=== PATIENT | female | born 1950 | race Caucasian/White ===

== ENCOUNTER → 2023-10-12 14:21 | Outpatient (REF) | payer MEDICARE, OTHER, SELFPAY ==
[2023-10-12 15:34] LABS: ALT (SGPT) 25 U/L (0-35); AST (SGOT) 36 U/L (14-36); Albumin 4.6 g/dl (3.5-5.0); Alkaline Phosphatase 75 U/L (38-126); Blood Urea Nitrogen 11 mg/dl (7-17); Carbon Dioxide 23 mmol/L (22-30); Chloride 99 mmol/L (98-107); Glucose 108 mg/dl (70-99); HDL Cholesterol 75 mg/dl; LDL Cholesterol, Calculated 63 mg/dl; Potassium 4.2 mmol/L (3.5-5.1); Sodium 132 mmol/L (135-145); Total Bilirubin 0.8 mg/dl (0.2-1.3); Total Cholesterol 155 mg/dl (50-199); Total Protein 7.5 g/dl (6.3-8.2); Triglyceride 85 mg/dl (10-149); Very Low Density Lipoprotein 17 mg/dl (0-30); eGFR > 60.00
== END ==
LOC: REG 14:21
PROVIDERS: ATTENDING PHYSICIAN Family Medicine
DX: I10 Essential (primary) hypertension (principal); E78.5 Hyperlipidemia, unspecified
CPT/HCPCS: 36415; 80053; 80061

== ENCOUNTER → 2023-11-07 14:26 | Outpatient (REF) | payer MEDICARE, OTHER, SELFPAY ==
[2023-11-07 16:22] LABS: Carbon Dioxide 22 mmol/L (22-30); eGFR > 60.00
[2023-11-07 16:31] LABS: Blood Urea Nitrogen 13 mg/dl (7-17); Chloride 105 mmol/L (98-107); Glucose 99 mg/dl (70-99); Potassium 4.4 mmol/L (3.5-5.1); Sodium 137 mmol/L (135-145)
== END ==
LOC: REG 14:26
PROVIDERS: ATTENDING PHYSICIAN Family Medicine
DX: E87.1 Hypo-osmolality and hyponatremia (principal)
CPT/HCPCS: 36415; 80048

== ENCOUNTER → 2023-11-14 09:34 | Outpatient (REF) | payer MEDICARE, OTHER, SELFPAY | LOC: HWRAD 09:34 | PROVIDERS: ATTENDING PHYSICIAN Nurse Practitioner Family | DX: M25.552 Pain in left hip (principal); M25.572 Pain in left ankle and joints of left foot | CPT/HCPCS: 73502; 73610 ==

== ENCOUNTER → 2023-12-03 16:27 | Outpatient (REF) | payer MEDICARE, OTHER, SELFPAY | LOC: RAD 16:27 | PROVIDERS: ATTENDING PHYSICIAN Nurse Practitioner Family | DX: R10.32 Left lower quadrant pain (principal) | CPT/HCPCS: 76830; 76856 ==

== ENCOUNTER → 2023-12-06 15:39 | Outpatient (REF) | payer MEDICARE, OTHER, SELFPAY | LOC: RAD 15:39 | PROVIDERS: ATTENDING PHYSICIAN Nurse Practitioner Family | DX: M25.551 Pain in right hip (principal) | CPT/HCPCS: 73502 ==

== ENCOUNTER → 2024-05-22 12:53 | Outpatient (REF) | payer MEDICARE, OTHER, SELFPAY | LOC: HWRCS 12:53 | PROVIDERS: ATTENDING PHYSICIAN Internal Medicine Cardiovascular Disease; FAMILY PHYSICIAN Family Medicine | DX: I34.0 Nonrheumatic mitral (valve) insufficiency (principal) | CPT/HCPCS: 93306 ==

== ENCOUNTER → 2024-07-03 06:37 | Outpatient (REF) | payer MEDICARE, OTHER, SELFPAY | LOC: WDC 06:37 | PROVIDERS: ATTENDING PHYSICIAN Family Medicine | DX: Z12.31 Encounter for screening mammogram for malignant neoplasm of breast (principal) | CPT/HCPCS: 77063; 77067 ==

== ENCOUNTER → 2024-07-28 12:25 | Outpatient (REF) | payer MEDICARE, OTHER, SELFPAY | LOC: HWRAD 12:25 | PROVIDERS: ATTENDING PHYSICIAN Physician Assistant | DX: M89.8X1 Other specified disorders of bone, shoulder (principal); M25.511 Pain in right shoulder | CPT/HCPCS: 73000; 73030 ==

== ENCOUNTER → 2024-12-22 10:26 | Outpatient (REF) | payer MEDICARE, OTHER, SELFPAY ==
[2024-12-22 11:39] LABS: Hematocrit 37.2 % (37.0-47.0); Hemoglobin 12.4 g/dL (12.0-16.0); Mean Corp Hgb Conc. 33.3 g/dL (33.0-37.0); Mean Corpuscular Volume 88.8 fL (81.0-99.0); Nucleated Red Blood Cells % 0 %; Platelet Count 208 10^3/uL (130-400); Red Cell Dist. Width 14.4 % (11.5-14.5)
[2024-12-22 12:21] LABS: ALT (SGPT) 24 U/L (0-35); AST (SGOT) 30 U/L (14-36); Albumin 4.3 g/dl (3.5-5.0); Alkaline Phosphatase 70 U/L (38-126); Blood Urea Nitrogen 10 mg/dl (7-17); Calcium 9.5 mg/dl (8.4-10.2); Carbon Dioxide 23 mmol/L (22-30); Chloride 110 mmol/L (98-107); Glucose 104 mg/dl (70-99); HDL Cholesterol 61 mg/dl; LDL Cholesterol, Calculated 70 mg/dl; Potassium 4.4 mmol/L (3.5-5.1); Sodium 138 mmol/L (135-145); Total Protein 7.1 g/dl (6.3-8.2); Very Low Density Lipoprotein 16 mg/dl (0-30); eGFR > 60.00
[2024-12-22 12:29] LABS: Vitamin D, 25-OH*** 78.9 ng/mL (30-80)
== END ==
LOC: REG 10:26
PROVIDERS: ATTENDING PHYSICIAN Family Medicine
DX: E55.9 Vitamin D deficiency, unspecified (principal); E78.5 Hyperlipidemia, unspecified; I10 Essential (primary) hypertension; R79.89 Other specified abnormal findings of blood chemistry; Z00.00 Encounter for general adult medical examination without abnormal findings; R53.82 Chronic fatigue, unspecified
CPT/HCPCS: 36415; 80053; 80061; 82306; 84443; 85025

== ENCOUNTER 2025-02-28 19:41 | Emergency (ER) | payer MEDICARE, OTHER, SELFPAY ==
[2025-02-28 19:44] VITALS: BP 143/102
[2025-02-28 20:04] LABS: Hematocrit 39.4 % (37.0-47.0); Hemoglobin 13.2 g/dL (12.0-16.0); Mean Corp Hgb Conc. 33.5 g/dL (33.0-37.0); Mean Corpuscular Volume 87.6 fL (81.0-99.0); Nucleated Red Blood Cells % 0 %; Platelet Count 235 10^3/uL (130-400); Red Cell Dist. Width 13.7 % (11.5-14.5)
[2025-02-28 20:07] LABS: Urine Character Clear (Clear)
[2025-02-28 20:09] LABS: Urine Squamous Cell >30 /LPF (Few)
[2025-02-28 20:10] LABS: Urine Red Blood Cell 0-2 /HPF (0-2); Urine White Cell 50-60 /HPF (0-5)
[2025-02-28 20:16] LABS: ALT (SGPT) 24 U/L (0-35); AST (SGOT) 32 U/L (14-36); Albumin 4.6 g/dl (3.5-5.0); Alkaline Phosphatase 82 U/L (38-126); Blood Urea Nitrogen 9 mg/dl (7-17); Calcium 9.9 mg/dl (8.4-10.2); Carbon Dioxide 23 mmol/L (22-30); Chloride 107 mmol/L (98-107); Glucose 117 mg/dl (70-99); Potassium 4.1 mmol/L (3.5-5.1); Sodium 138 mmol/L (135-145); Total Protein 7.6 g/dl (6.3-8.2); eGFR > 60.00
[2025-02-28 22:19] VITALS: BP 161/68
[2025-02-28 23:00] VITALS: BP 149/61
[2025-02-28] MEDS: TORADOL 15 MG IV (23:13)
--- NOTE | 2025-02-28 23:14 | ED.GENMED ---
History of Present Illness
General
Chief Complaint: Urinary Symptoms
Source: patient and spouse
Exam Limitations: none
Time Seen by Provider: 02/28/25 22:35
Nursing documentation reviewed up to this point in time: agreed with
History of Present Illness
History of Present Illness:
The patient is a 74-year-old female presenting with urinary tract infection (UTI) symptoms and low back pain. The symptoms began earlier in the week and include low back pain described as a pressure across the lower back. The patient mentions a
history of spinal surgery, though this was over 20 years ago, and she generally does not experience back pain. The discomfort occasionally moves up her right posterior flank region over the past 2 days. She has a history of UTIs, although she states
it has never progressed to this stage before, and they occur infrequently. The patient describes dysuria, increased urinary frequency, and a sensation of incomplete bladder emptying, but denies visible hematuria. She reports experiencing
questionable low-grade fever this evening but no significant chills, alongside a lack of improvement in symptoms.
She was evaluated by her PCP yesterday morning and was started on Cipro for presumptive UTI and concern for potential pyelonephritis. She has had 3 doses thus far, last dose was this morning. Despite this, the pains progression has prompted her to
seek additional medical attention. The patient denies any history of kidney stones or kidney infections. She reports taking acetaminophen occasionally for pain, with the most recent use being yesterday.
Past History
Past History
ED Past Medical History: HTN, Hypothyroidism, Other (Anemia ) and Other (L BBB)
ED Past Surgical History: Orthopedic and Tonsilectomy
Social History
Tobacco: Non-smoker
Alcohol: Occasional
Drug: None
Personal:
Employment: Retired
Family History
Family History: Other (No significant CAD. Father was adopted. He did smoke. And had heart disease)
Phy Exam
Physical Exam
Physical Exam:
GENERAL: 74-year-old woman appears her stated age, awake and alert, pleasant, appears in no acute distress. is accompanying. She is afebrile. Mild systolic hypertension noted.
EYE: anicteric
NECK: Supple, nontender, no meningismus, no significant adenopathy.
ENT: oral mucosa is moist. No rhinorrhea.
CARDIAC: Regular rate and rhythm. no murmur.
LUNGS: Clear breath sounds bilaterally, no acute respiratory distress, no wheezes/rales/rhonchi
ABDOMEN: Soft, nondistended, without focal tenderness, no r/g, minimal right CVA tenderness with percussion, normoactive BS.
BACK: No midline bony tenderness nor paravertebral muscle spasm. Patient sits up with ease and without difficulty.
NEUROLOGICAL: Alert and oriented x3, no focal neuro deficits. Gait is jeffers and steady.
SKIN: Warm and dry, normal color, skin intact. No rash.
MUSCULOSKELETAL: No C/C/E. peripheral pulses are full and equal b/l. No palpable tenderness.
PSYCH: Normal and appropriate interaction.
Course
Orders/Labs/Results
Orders:
Orders
02/28/25 19:52
Complete Blood Count/With Diff Urgent
Comprehensive Metabolic Panel Urgent
02/28/25 19:55
Urinalysis Reflex To Culture Urgent
Date Specimen was Collected: 02/28/25
Time Specimen was Collected: 19:44
Urine Microscopic Reflex Cult Urgent
Urine Culture Urgent
ZAIRE Source: U
Specimen Description:
Date Specimen was Collected: 02/28/25
Time Specimen was Collected: 19:44
02/28/25 22:48
0.9% Sodium Chloride 1000 ml [Nss] 1,000 ml IV BOLUS
Ketorolac [Toradol] 15 mg IV NOW STA
03/01/25 00:01
CT Abd/pelvis W Iv Cont Urgent
Reason For Exam: LBP x 1 wk, R flank pain 2 d. UTI symptoms
03/01/25 01:03
CefTRIAXone [Rocephin] 1,000 mg IV NOW STA
03/01/25 01:04
Cardiac Monitoring- Treatment ONCE
Abnormal Lab Results
02/28/25 02/28/25
19:52 19:55
Absolute Lymphs (auto) 3.9 H 10^3/uL
(1.2-3.4)
Absolute Monos (auto) 0.8 H 10^3/uL
(0.1-0.6)
Glucose 117 H mg/dl
(70-99)
Ur Occult Blood Reflex 2+ A
(Negative)
Leukocyte Esterase Rfl 3+ A
(Negative)
Urine WBC (Reflex) 50-60 A /HPF
(0-5)
Urine Bacteria (Reflex) Many A
(Negative)
Urine Albumin (Reflex) 2+ A
(Neg - Trace)
02/28/25 19:52
02/28/25 19:52
Vital Signs
Initial and Last Documented VS:
Initial Vital Signs
Temp Pulse Resp BP Pulse Ox
99 F 115 18 143/102 98
02/28/25 19:44 02/28/25 19:44 02/28/25 19:44 02/28/25 19:44 02/28/25 19:44
Last Documented Vital Signs
Temp Pulse Resp BP Pulse Ox
99 F 82 18 160/63 98
02/28/25 19:44 02/28/25 22:20 02/28/25 22:20 03/01/25 00:00 03/01/25 00:15
MDM/Problems Addressed
Differential Diagnosis Includes:
The Differential Diagnosis includes, in no particular order and is not limited to:
1. Urinary tract infection
2. Early kidney infection (pyelonephritis)
3. Kidney stones
4. Low back strain
5. Musculoskeletal pain
6. Spinal pathology (considering history of spinal surgery)
7. Interstitial cystitis
8. Bladder infection
9. Overactive bladder
10. Urinary retention
MDM/Problems Addressed:
Acute:
- Urinary tract infection symptoms.
- Low back pain.
- Possible early kidney infection.
Thus far labs are unremarkable, reassuring with normal white blood cell count. Unremarkable chemistries. Urinalysis shows many bacteria, 50-60 WBCs. No RBCs. Appears to be a contaminated specimen with greater than 30 squamous epithelial cells.
Patient has had UTI symptoms thus I do suspect this urinalysis is consistent with UTI.
With mild right flank pain, must consider early pyelonephritis. However other other consideration is ureteric stone, diverticulitis, musculoskeletal back pain.
Plan:
- Continue ciprofloxacin for currently diagnosed urinary tract infection.
- Administer IV fluids and IV antibiotics to potentially enhance the treatment of an early kidney infection.
- Perform a CT scan to rule out kidney stones, despite reassurance from blood work.
- Provide IV analgesia for pain management.
*Radiology
Radiology exam reviewed: radiology read reviewed (CT abdomen pelvis is unremarkable)
*Pulse Oximetry
SaO2: 99
Oxygen Mode of Delivery: Room air
Patient hypoxic: no
*Critical Care Note
Total Time (30-74mins, 75-104mins- exclusive of procedures): Not Applicable
Update Note
Update Note:
01:50
Patient reports relief of back pain after an IV dose of Toradol.
Brief palpitations during CT of the abdomen pelvis with IV contrast. Palpitations have resolved. No other associated symptoms.
Monitor showing normal sinus rhythm with occasional PACs.
CT abdomen pelvis is unremarkable.
Patient has been given a one-time dose of Rocephin and will plan for discharge to home with recommendations to continue Cipro for full 7 days.
Discussed importance of staying well-hydrated on a daily basis.
Continue Tylenol versus ibuprofen as needed for pain, fever.
Prompt follow-up with PCP for recheck.
Return precautions discussed.
ED Attending Note
-
Portions of this chart may have been created with voice recognition software.� Occasional wrong word or��sound alike� substitutions may have occurred due to the inherent limitations of voice recognition software.
Discharge Plan
Departure
Patient Disposition: Home (Routine Discharge)
Date of Disposition: 03/01/25
Time of Disposition: 01:53
Patient with high blood pressure during this ER visit?: No
Condition: Good
Discharge Problem:
Urinary tract infection, Early pyelonephritis
Instructions: Urinary tract infection in adults - ED (DC)
Prescriptions:
No Action
metoprolol tartrate 25 MG tablet
25 mg PO DAILY
amlodipine 2.5 MG tablet
7.5 mg PO DAILY
albuterol sulfate 1 PUFF HFA aerosol inhaler
1 puff inhalation R Q4HPRN PRN (Reason: sob)
atorvastatin [Lipitor] 10 MG tablet
10 mg PO QPM
cholecalciferol (vitamin D3) [Vitamin D3] 2,000 UNIT capsule
2,000 unit PO DAILY
Referrals:
Niyah Ortega MD [Family Provider, Family Practice] - Call in 1-3 days for appt
Activity Restrictions/Additional Instructions:
Stay well-hydrated on a daily basis.
Continue Cipro twice daily until finished.
Continue Tylenol versus ibuprofen as needed for pain, fever.
Interventions
Interventions:
*Risk Screen - Suicide Last Done: 02/28/25 19:44
*General Assessment Last Done: 02/28/25 19:44
*Neglect/Abuse Screening Last Done: 02/28/25 19:44
*ED- Fall Risk Assessment Last Done: 02/28/25 19:44
*ED COVID-19 Vaccine History Last Done: 02/28/25 19:44
ED-Female Genitourinary Assessment Last Done: 02/28/25 22:17
Discharge Date and Time
Print Language: IVORIAN
[2025-02-28] MEDS: NSS 1000 IV (23:22)
[2025-03-01] VITALS: BP 160/63
[2025-03-01] MEDS: ROCEPHIN 1000 MG IV (01:09)
[2025-03-01 01:13] VITALS: BP 171/85
[2025-03-01 02:00] VITALS: BP 160/74
== END 2025-03-01 02:12 | disposition home or self-care (01) ==
LOC: EMR 19:41
PROVIDERS: Emergency Medicine; EMERGENCY PHYSICIAN Emergency Medicine; FAMILY PHYSICIAN Family Medicine
DX: N12 Tubulo-interstitial nephritis, not specified as acute or chronic (principal); I10 Essential (primary) hypertension; E03.9 Hypothyroidism, unspecified; D64.9 Anemia, unspecified; I44.7 Left bundle-branch block, unspecified; Z82.49 Family history of ischemic heart disease and other diseases of the circulatory system; Z87.440 Personal history of urinary (tract) infections
CPT/HCPCS: 99284; 96374; 96375; 96361; 74177; 80053; 81003; 81015; 85025; 87077; 87086; 87147; Q9967

== ENCOUNTER → 2025-03-12 11:24 | Outpatient (REF) | payer MEDICARE, OTHER, SELFPAY | LOC: REG 11:24 | PROVIDERS: ATTENDING PHYSICIAN Internal Medicine Gastroenterology; FAMILY PHYSICIAN Family Medicine | DX: R19.7 Diarrhea, unspecified (principal) | CPT/HCPCS: 82272; 87045; 87046; 87324; 87427; 87449; 89055 ==

== ENCOUNTER → 2025-04-06 13:39 | Outpatient (REF) | payer MEDICARE, OTHER, SELFPAY | LOC: RAD 13:39 | PROVIDERS: ATTENDING PHYSICIAN Family Medicine | DX: M85.89 Other specified disorders of bone density and structure, multiple sites (principal) | CPT/HCPCS: 77080 ==